=== PATIENT | female | born 1970 | race Caucasian/White ===

== ENCOUNTER → 2019-11-15 11:00 | Outpatient (CLI) | payer MEDICAID, SELFPAY ==
[2019-11-15 10:20] VITALS: BMI 25.7
[2019-11-15 11:46] LABS: Internal QC Validated? YES +Cl - CLEAR BKGD; Pregnancy, Urine Negative Negative
[2019-11-15 12:05] LABS: Anion Gap 7 (5-15); BUN 17 mg/dL (7-18); BUN/Creat Ratio 28.8 RATIO (10-20); Calcium,Total 8.7 mg/dL (8.5-10.1); Chloride 105 mmol/L (98-107); Creatinine, Serum 0.59 mg/dL (0.55-1.02); EST Glomerular Filtration Rate 116 mL/min (>60); Est Glom Filt Rate - Afr Amer 140 mL/min (>60); Glucose 87 mg/dL (74-106); Potassium 3.8 mmol/L (3.5-5.1); Sodium Level 140 mmol/L (136-145)
== END ==
PROVIDERS: PCP Family Medicine; Referring Provider Internal Medicine Cardiovascular Disease; Visit Provider Internal Medicine Cardiovascular Disease
DX: R07.9 Chest pain, unspecified (principal)
CPT/HCPCS: 36415; 80048; 81025

== ENCOUNTER → 2019-11-24 13:25 | Outpatient (CLI) | payer MEDICAID, SELFPAY ==
[2019-11-15 10:20] VITALS: BMI 25.7
--- NOTE | 2019-11-24 13:25 | CT_ITS ---
STUDY: CT CHEST WITHOUT CONTRAST REASON FOR EXAM: Female, 49 years old. Chest pain, family hx cardiac issues. Limited CT Chest OVER-READ ONLY. RADIATION DOSAGE (If Supplied By Facility): CTDIvol = ( 24.15 ) mGy, DLP = ( 963.83 ) mGycm TECHNIQUE: Transaxial imaging was performed without the administration of intravenous contrast material. Cardiac over read examination. Individualized dose optimization techniques were used for this CT. COMPARISON: None. FINDINGS: The lungs are normal. There is no demonstrated pleural abnormality. Normal heart and pericardium. Normal mediastinum. Normal hilar regions. Normal unenhanced pulmonary arteries. Normal aorta arch and descending thoracic aorta. Normal osseous structures. There is no demonstrated abnormality of the visualized upper abdomen. CT/Limited Chest CT w/CCTA IMPRESSION: Normal unenhanced CT Chest examination. Electronically Signed: Dayne Du, at 15:17 EDT , Service support ,
[2019-11-24 13:43] VITALS: BP 97/64; PULSE 71; RESP 16; O2SAT 98; BMI 25.0
[2019-11-24 14:08] VITALS: BP 97/64; PULSE 68
[2019-11-24] MEDS: Nitroglycerin SL (ED/IMG/CATH) 0.4 MG TABLET SUBLINGUAL (14:08)
[2019-11-24 14:14] VITALS: BP 98/50; PULSE 73; RESP 16; O2SAT 95
--- NOTE | 2019-11-27 09:11 | CCTA.WCONT ---
CCTA w/Cont Coronary Arteries Date of Study:: 11/24/19 Chest pain High resolution computed tomographic imaging of the chest was performed on 11/24/2019 with particular attention paid to the coronary arteries. Images from the software examination were analyzed for the presence and extent of coronary calcification using the coronary calcium quantification software. The patient was also administered 100 cc of intravenous contrast agent to define the coronary arteries. 0.65 mm slices were obtained after the images were reconstructed and compared. Coronary imaging was performed. LEFT MAIN CORONARY ARTERY: Calcium score was noted to be 0. This vessel arose from the left coronary ostium did not have any significant stenosis noted therein. [] LEFT ANTERIOR DESCENDING CORONARY ARTERY: The left anterior descending artery calcium score was noted to be 0. It coursed towards the apex of the left ventricle giving off 2 diagonal branches. No significant stenosis was noted in this vessel. [] LEFT CIRCUMFLEX CORONARY ARTERY: The coronary calcium score in this vessel was noted to be 0. It was a codominant vessel. No significant stenosis was noted in this vessel. [] RIGHT CORONARY ARTERY: The coronary calcium score was 0. It was a codominant small vessel it bifurcated towards the base with no significant stenosis noted. [] THORACIC AORTA: Appeared to be normal [] PULMONARY ARTERY: Appeared to be normal size [] LEFT ATRIUM/APPENDAGE: [] MITRAL VALVE: [] AORTIC VALVE: Trileaflet [] LEFT VENTRICLE: [] CORONARY CALCIUM SCORE: 0 [] Conclusion: Normal CT angiogram with no obvious stenosis noted. Coronary calcium score of 0 suggesting minimal coronary atherosclerosis.
== END ==
PROVIDERS: PCP Family Medicine; Referring Provider Internal Medicine Cardiovascular Disease; Visit Provider Internal Medicine Cardiovascular Disease
DX: R07.9 Chest pain, unspecified (principal)
CPT/HCPCS: 75571; 75574; 76380; Q9967; A4216

== ENCOUNTER → 2022-08-06 | Outpatient (CLI) | payer MEDICAID, SELFPAY ==
--- NOTE | 2022-08-06 06:32 | ECHOD_ITS ---
Reason For Study: CHEST PAIN Procedure This was a 2D Doppler, Color Flow transthoracic echocardiogram. Exam performed in department. Left Ventricle Normal LV size. Left ventricular systolic function is normal. The estimated ejection fraction is 55 %. No regional wall motion abnormalities noted. Right Ventricle Normal RV size. Normal systolic function. Atria Normal left atrium. Normal right atrium. Mitral Valve Normal mitral valve. Tricuspid Valve Normal tricuspid valve. Aortic Valve Trisinus/trileaflet aortic valve. Pulmonic Valve Normal pulmonic valve. Great Vessels Normal aortic root. The pulmonary artery is normal size. Normal inferior vena cava. Pericardium/Pleural No pericardial effusion. Medication Performed a rapid injection of agitated mix of 9 cc saline and 1cc air to assess for atrial septal defect. MMode/2D Measurements & Calculations LVIDd: 4.7 cm IVSd: 0.83 cm Ao root diam: 3.1 cm LVIDs: 3.2 cm LVPWd: 0.87 cm RVDd: 2.9 cm FS: 31.9 % LAV(MOD-bp): 32.8 ml LVAd ap4: 30.8 cm2 SV(MOD-sp4): 60.2 ml LAV(MOD-bp) Indexed: 18.7 ml/m2 LVLd ap4: 7.9 cm LAV(MOD-sp2): 30.5 ml EDV(MOD-sp4): 98.3 ml LAV(MOD-sp4): 34.1 ml EDV(sp4-el): 102.8 ml LVAs ap4: 17.1 cm2 LVLs ap4: 6.6 cm ESV(MOD-sp4): 38.1 ml ESV(sp4-el): 37.7 ml EF(MOD-sp4): 61.2 % EF(sp4-el): 63.3 % SV(sp4-el): 65.1 ml LA A4 area: 14.8 cm2 LA dimension(2D): 3.0 cm RA A4 area: 13.8 cm2 Time Measurements MV dec time: 0.20 sec Doppler Measurements & Calculations MV E max dixon: 88.6 cm/sec Lat Peak E' Dixon: 12.7 cm/sec Med Peak E' Dixon: 12.4 cm/sec MV A max dixon: 57.9 cm/sec E/E' lat: 7.0 E/E' med: 7.1 MV E/A: 1.5 Ao V2 max: 120.1 cm/sec LV V1 max: 90.2 cm/sec PA V2 max: 93.1 cm/sec Ao max P.8 mmHg LV V1 max P.3 mmHg ECHO/Echo Complete Interpretation Summary Normal LV size. Left ventricular systolic function is normal. The estimated ejection fraction is 55 %. Trisinus/trileaflet aortic valve. Ordering Physician: Sonali Anthony Referring Physician: RODRIGO SIMPSON Performed By: Kaitlin Mckinney RDCS
--- NOTE | 2022-08-06 16:03 | STRESSREP_ITS ---
Stress Test Report Exercise myocardial perfusion stress test. 51-year-old lady with a history of chest pain and a family history Stress protocol: Resting EKG demonstrates normal sinus rhythm with a rate of 64 bpm resting blood pressure is 112/70 mmHg. The patient exercised according to the regular Patrice protocol for a total duration of 8 minutes attaining a maximum heart rate of 169 bpm which was 98% of maximum predicted heart rate; the maximum workload was 10.1 METS metabolic equivalents. At rest there were no ST or T wave changes noted to suggest ischemia and at peak exercise upsloping ST changes only were noted which did not meet the criteria for ischemia. No clinical angina was noted the test was terminated due to the target heart rate being achieved/fatigue. The peak blood pressure was 142/68 mmHg. Rate-pressure product was 22,300. Myocardial perfusion protocol. 12.0 mCi of technetium 99m sestamibi was injected at rest. The patient exe rcised according to regular Patrice protocol for total duration of 8 minutes and at peak exercise 35.5 mCi of technetium 99m sestamibi was injected stress images were obtained stress and rest images were reconstructed in comparing the short axis vertical long and horizontal long axis. Gated images were also obtained. Perfusion SPECT analysis: Review of the stress images demonstrate normal uptake of tracer noted in all areas of the myocardium. The resting images similarly demonstrate normal uptake of tracer noted in all areas of the myocardium. No areas of reversibility are noted to suggest ischemia no previous infarct was noted. Gated SPECT analysis: The gated ejection fraction is 65%. Conclusion: Normal exercise myocardial perfusion stress test at a high workload Preserved ejection fraction.
== END | disposition home or self-care (01) ==
LOC: CVS 06:30
PROVIDERS: PCP Family Medicine; Visit Provider Nurse Practitioner Gerontology
DX: R07.9 Chest pain, unspecified (principal); Z82.49 Family history of ischemic heart disease and other diseases of the circulatory system
CPT/HCPCS: 78452; 93017; 93306; A9500; A4216

== ENCOUNTER 2023-06-30 07:00 | Outpatient (RCR) | payer MEDICAID, SELFPAY ==
--- NOTE | 2023-04-07 08:05 | HP.PTEVAL ---
Patient's Visit Information Visit Information Visit Information: PRIMO SAUCEDA is a 52 year old F referred to Physical Therapy by Dr. Liang Aponte MD with a diagnosis of L shoulder pain. Date of Evaluation: 04/07/23 Physical Therapist: Mayank Ibarra, PT, ATC Visit Plan Frequency: 2x /Week Duration: 3-6 weeks Plan: L shoulder rotator cuff strengthening, scap stab ex's, UBE, and HEP Subjective Subjective: Pt reports having L shoulder pain for approximately one year. Pt notes she was working out at the time when she began to notice L shoulder pain. Pt reports she feels weak, and her shoulder feels unstable. Pt reports she is R arm dominant. Pt notes her pain will wake her up at night if she rolls over on that shoulder. No PMHx of L shoulder complications. Pt reports increased pain with lifting behind her back. Pt notes she doesnt lift anything heavy now, like even a gallon of milk, secondary to L shoulder pain. Pt reports she had xrays which revealed no significant findings at this time. Pt reports she would get pain radiating down her arm when this first occurred, but none at this time. 0/10 pain while sitting at rest, 4/10 pain at worst over the past week. Pain L shoulder pain: Pain Intensity (Out of 10): 0 Pain Intensity Range: 4 Objective Objective: Neuro: B UE sensation is WNL to light touch. B bicipital reflex= 2/3 Palpation: Pt is very sore along the supraspinatus tendon, and along the LHB tendon of the L shoulder ROM: R shoulder flex= 165, abd= 155, ER= 90, IR= WNL; L shoulder flex= 145, abd= 125, ER= 160, IR= WNL MMT: R shoulder flex= 14, abd= 22, ER= 17, IR= 17 #F; L shoulder flex= 7, abd= 8, ER= 9, IR= 14 #F Special testing: Pos empty can test Balance/Special Test Scores Quick DASH Score: 25.0000 Goals Goal 1:: Decrease L shoulder pain x 50% to aid with sleep Goal Time Frame: 4-6 Weeks Goal 2:: Increase L shoulder flex and abd ROM x 20 degrees to aid with overhead lifting Goal Time Frame: 4-6 Weeks Goal 3:: Increase L shoulder strength x 5-10#F in all planes to aid with IADL's without limitation Goal Time Frame: 4-6 Weeks Goal 4:: I with HEP Goal Time Frame: 4-6 Weeks Rehabilitation Potential Physical Therapy Diagnosis: Pt has L shoulder pain, weakness, and limited ROM secondary to L shoulder impingement syndrome Rehabilitation Potential: Good Anticipated Interventions Patient/Client Instruction: Educate patient on: Condition and Plan of Care For the Purpose of:: To improve self management Therapeutic Exercise to Include: Strength training, Endurance training, Active ROM and Scapular Strength/Stabilization For the Purpose of:: To decrease pain, To increase ROM and To improve muscle performance and motor function Cryotherapy (ice pack, ice massage): Yes For the Purpose of:: To decrease pain Text: Thank you for the opportunity to evaluate your patient. For Medicare and Medicare HMO plans, please review the plan of care and approve it. It will need to be FAXED BACK to us at [phone] for Medicare purposes. For Medicare only, by signing this I certify the plan of care. Please let me know if there are questions or concerns regarding this plan of care. Physician Signature: Date:
--- NOTE | 2023-05-05 07:33 | HP.PTREVAL ---
Re-Evaluation Intro: Dr. Liang Aponte MD, It has been my pleasure to treat PRIMO SAUCEDA over the last 6 visits for L shoulder pain. Please see the progress note below for an update on the physical therapy plan of care! Subjective Subjective: Pt reports she is feeling better, but still feels the instability Objective Objective/Function: L shoulder ROM: flex= 150, abd= 155, ER= 50, IR= WNL L shoulder MMT: flex= 8, abd= 5, ER= 10, IR= 15 #F L shoulder pain ranges from 2-3/10 Pt is showing improvements with strength, ROM, and pain Plan Plan Plan: Follow up and cont/DC in one month Balance/Gait/Functional tests Balance/Special Test Scores Quick DASH Score: 27.2725 Goals Goals Goal 1:: Decrease L shoulder pain x 50% to aid with sleep Goal Time Frame: 4-6 Weeks Goal Progress: Progressing Goal 2:: Increase L shoulder flex and abd ROM x 20 degrees to aid with overhead lifting Goal Time Frame: 4-6 Weeks Goal Progress: Progressing Goal 3:: Increase L shoulder strength x 5-10#F in all planes to aid with IADL's without limitation Goal Time Frame: 4-6 Weeks Goal Progress: Progressing Goal 4:: I with HEP Goal Time Frame: 4-6 Weeks Goal Progress: Progressing Anticipated Interventions Anticipated Interventions Patient/Client Instruction: Educate patient on: Condition and Plan of Care For the Purpose of:: To improve self management Therapeutic Exercise to Include: Strength training, Endurance training, Active ROM and Scapular Strength/Stabilization For the Purpose of:: To decrease pain, To increase ROM and To improve muscle performance and motor function Cryotherapy (ice pack, ice massage): Yes For the Purpose of:: To decrease pain Re-Evaluation Ending Re-evaluation ending: Please do not hesitate to contact me at [phone] by phone or if you have questions or concerns regarding this new plan of care! Sincerely, Mayank Ibarra, PT, ATC
--- NOTE | 2023-06-30 07:33 | HP.PTDCSUM ---
Discharge Summary D/C summary: It has been my pleasure to treat PRIMO SAUCEDA referred by Dr. Liang Aponte MD, with the diagnosis of L shoulder pain for a total of 8 visit(s). Discharge Date: Please see the following information for a summary of their discharge status. Subjective Subjective: I feel like I have less painful moments, but the pain is still there. And my shoulder cracks a lot. Pain L shoulder pain: Pain Intensity (Out of 10): 0 Overall Improvement % Improvement: 20 Objective Objective/Function: L shoulder pain ranges from 0-3/10 L shoulder ROM: flex= 150, abd= 155, ER= 55, IR= WNL L shoulder MMT: flex= 7, abd= 8, ER= 13, IR=13#F No significant changes since last visit Goals Goal 1:: Decrease L shoulder pain x 50% to aid with sleep Goal Progress: Progressing Goal 2:: Increase L shoulder flex and abd ROM x 20 degrees to aid with overhead lifting Goal Progress: Not Progressing Goal 3:: Increase L shoulder strength x 5-10#F in all planes to aid with IADL's without limitation Goal Progress: Not Progressing Goal 4:: I with HEP Goal Progress: Goal Met Plan Plan: Discontinue to HEP. Return to doctor if pain does not gradually improve D/C Information d/c sentence: If there are questions or concerns regarding this patient's physical therapy, please feel free to call me at [phone]. Thank you for the referral of this patient. Sincerely, Mayank Ibarra, PT, ATC Balance/Gait/Functional tests Balance/Special Test Scores Quick DASH Score: 18.1800 Improvement % Improvement: 20
== END 2023-06-30 19:00 | disposition home or self-care (01) ==
LOC: PT 07:00
PROVIDERS: PCP Family Medicine; Visit Provider Orthopaedic Surgery Sports Medicine
DX: M25.512 Pain in left shoulder (principal); M25.812 Other specified joint disorders, left shoulder
CPT/HCPCS: 97110; 97161; 97164